=== PATIENT | female | born 1990 | race African-American/Black ===

== ENCOUNTER 2021-02-26 06:03 | Emergency (ER) | payer BC, SELFPAY ==
[2021-02-26 06:05] VITALS: BP 162/96; PULSE 79; RESP 17; TEMP 37; O2SAT 99; BMI 28.3
--- NOTE | 2021-02-26 06:20 | HMH.EDGENADL ---
ED Disposition <Nicholas Shirley - Last Filed: 02/26/21 07:05> Condition on Discharge: Good - Critical Care Critical Care Time: No <Maribel Ramsey - Last Filed: 02/26/21 10:05> Clinical Impression: Ovarian cyst Disposition: Home, Self-Care Additional Instructions: follow up with PCP. Return to ED if new symptoms. Take meds as directed. Take Tylenol as needed for pain. Prescriptions: Dicyclomine HCl [Bentyl 10mg capsule] 10 mg PO TID 7 Days #21 cap Transmission Status: Pending to [id number] - [facility] Rx Referrals: Droy Williamson MD [Primary Care Provider] - Attestation: On 02/26/21, the high probability of a clinically significant, sudden or life threatening deterioration of the following system(s) required my full and direct attention, intervention and personal management. The time I documented below is in addition to time spent performing reported procedures but includes the following listed in this critical care notation. Medical Decision Making - Gilson Inquiry Pt receiving controlled substance: No - Lab Data Result diagrams: 02/26/21 06:27 02/26/21 06:27 <Nicholas Shirley - Last Filed: 02/26/21 07:05> - Medical Records MR Comment: ct shows left ovarian cyst. thrombosis f the left ovarian vein. - Gilson Inquiry Pt receiving controlled substance: No Gilson was queried for this patient: No - Lab Data Result diagrams: 02/26/21 06:27 02/26/21 06:27 <Maribel Ramsey - Last Filed: 02/26/21 10:05> Vital Signs: 02/26/21 06:05 02/26/21 09:53 Temperature 98.6 F Temperature Source Oral Pulse Rate 91 H Pulse Rate [Right] 79 Respiratory Rate 17 Blood Pressure 148/85 H Blood Pressure [Right Arm] 162/96 H Blood Pressure Mean 103 Blood Pressure Mean [Right Arm] 118 Blood Pressure Source [Right Arm] Automatic Cuff Blood Pressure Position [Right Arm] Supine 02 Sat by Pulse Oximetry 99 100 Oxygen Delivery Method Room Air - Lab Data Lab Results 02/26/21 06:27: WBC 7.2, RBC 4.72, Hgb 13.6, Hct 40.3, MCV 85.4, MCH 28.8, MCHC 33.7, RDW 13.3, Plt Count 296, MPV 8.0, Neut % (Auto) 76.5, Lymph % (Auto) 18.3, [place] % (Auto) 3.1, Eos % (Auto) 1.2, Baso % (Auto) 0.9, Neut # (Auto) 5.5, Lymph # (Auto) 1.3, [place] # (Auto) 0.2, Eos # (Auto) 0.1, Baso # (Auto) 0.1 02/26/21 06:27: Sodium 137, Potassium 4.2, Chloride 103, Carbon Dioxide 27, Anion Gap 11.2, BUN 12, Creatinine 0.70, Estimated Creat Clear 159, Estimated GFR 100, Est GFR ( Amer) 121, Glucose 123 H, Calcium 9.2, Total Bilirubin 0.3, AST 24, ALT 14, Alkaline Phosphatase 138 H, Total Protein 8.2, Albumin 4.7, Globulin 3.5 H, Albumin/Globulin Ratio 1.3, Lipase 65 02/26/21 06:27: Serum HCG, Qual Negative 02/26/21 07:25: Urine Color Yellow, Urine Appearance Clear, Urine pH 7.0, Ur Specific [place] 1.010, Urine Protein Negative, Urine Glucose (UA) Negative, Urine Ketones Negative, Urine Blood Negative, Urine Nitrate Negative, Urine Bilirubin Negative, Urine Urobilinogen 0.2, Ur Leukocyte Esterase Negative, Urine RBC None, Urine WBC 3-5, Ur Squamous Epith Cells 3-5, Urine Bacteria None Orders (Tests/Meds): ED MEDICATIONS Discontinued Medications Generic Name Dose Route Start Last Admin Trade Name Alvin PRN Reason Stop Dose Admin Iopamidol 75 ml 02/26/21 07:34 02/26/21 07:35 Iopamidol-370 (76%);100ml Bottle IV 02/26/21 07:35 75 ml ONCE ONE Administration Sodium Chloride 10 ml 02/26/21 07:34 02/26/21 07:35 Sodium Chloride 0.9% 10ml Syr (Rad Only) IV 02/26/21 07:35 10 ml ONCE ONE Administration ORDERS Category Date Time Status ECG Request by /Kajal Stat Y 02/26/21 06:30 Stop Req Medical Decision Narrative: Upon arrival patient is hemodynamically stable afebrile overall nontoxic appearing. Differential diagnosis includes but not limited to , endometriosis, renal colic, diverticulitis, intra-abdominal infection, colitis. Given this will obtain broad laboratory work-up katiana
--- NOTE | 2021-02-26 06:30 | CT_ITS ---
PROCEDURE INFORMATION: Exam: CT Abdomen And Pelvis With Contrast Exam date and time: 02/26/2021 6:30 AM Age: 30 years old Clinical indication: Abdominal pain; Localized; Lower; Additional info: Llq pain TECHNIQUE: Imaging protocol: Computed tomography of the abdomen and pelvis with contrast. Radiation optimization: All CT scans at this facility use at least one of these dose optimization techniques: automated exposure control; mA and/or kV adjustment per patient size (includes targeted exams where dose is matched to clinical indication); or iterative reconstruction. Contrast material: ISOVUE; Contrast volume: 75 ml; Contrast route: IV; COMPARISON: No relevant prior studies available. FINDINGS: Liver: Normal. No mass. Gallbladder and bile ducts: Normal. No calcified stones. No ductal dilation. Pancreas: Normal. No ductal dilation. Spleen: Normal. No splenomegaly. Adrenal glands: Normal. No mass. Kidneys and ureters: Normal. No hydronephrosis. Stomach and bowel: Unremarkable. No obstruction. No mucosal thickening. Appendix: No evidence of appendicitis. Intraperitoneal space: Unremarkable. No free air. No significant fluid collection. Vasculature: There is thrombosis in the left ovarian vein. Lymph nodes: Unremarkable. No enlarged lymph nodes. Urinary bladder: Unremarkable as visualized. Reproductive: There is a complex 2.6 cm cyst in the left ovary. Bones/joints: Unremarkable. No acute fracture. Soft tissues: Unremarkable. IMPRESSION: 1. 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 2. Left ovarian cyst.
[2021-02-26 06:38] LABS: Basophils # 0.1 K/mm3 (0-0.2); Basophils % 0.9 % (0.1-2.0); Eosinophils # 0.1 K/mm3 (0.0-0.4); Eosinophils % 1.2 % (0.1-12.0); Hematocrit 40.3 % (37.0-47.0); Hemoglobin 13.6 g/dL (12.2-16.2); Lymphocytes # 1.3 K/mm3 (0.7-4.5); Lymphocytes % 18.3 % (10-50); Mean Corpuscular HGB Conc 33.7 g/dL (31.8-35.4); Mean Corpuscular Hemoglobin 28.8 pg (27.0-31.2); Mean Corpuscular Volume 85.4 fl (81-99); Monocytes # 0.2 K/mm3 (0.1-1.0); Monocytes % 3.1 % (1.7-9.3); Neutrophils # 5.5 K/mm3 (1.8-7.8); Neutrophils % 76.5 % (37.0-80.0); Platelet Count 296 K/mm3 (142-424); Red Blood Count 4.72 M/mm3 (4.20-5.40); Red Cell Distribution Width 13.3 % (11.5-17.5); White Blood Count 7.2 K/mm3 (4.8-10.8)
[2021-02-26 06:47] LABS: HCG Qualitative, Serum Negative (Negative)
[2021-02-26 06:54] LABS: Chloride 103 mmol/L (98-107); Sodium 137 mmol/L (136-145)
--- NOTE | 2021-02-26 06:54 | ECG_ITS ---
APPROVED REPORT Exam: Resting ECG HR:83 bpm ECG Measurements Heart Rate 83 AXES NC 158 P 60 QRSd 70 QRS 82 QT 370 T 50 QTc 434 Conclusion Normal sinus rhythm Normal ECG Electronically signed by : Gatito Simon, 02/26/2021 20:39:43
[2021-02-26 06:55] LABS: Potassium 4.2 mmoL/L (3.5-5.1)
[2021-02-26 06:57] LABS: Alanine Aminotransferase 14 U/L (12-78); Albumin Level 4.7 g/dl (3.5-5.0); Albumin/Globulin Ratio 1.3 (1.1-1.8); Alkaline Phosphatase 138 U/L (38-126); Anion Gap 11.2 mEq/L (5-15); Aspartate Amino Transferase 24 U/L (14-36); Bilirubin,Total 0.3 mg/dl (0.2-1.3); Blood Urea Nitrogen 12 mg/dl (7-17); Calcium 9.2 mg/dl (8.4-10.2); Carbon Dioxide 27 mmol/L (22.0-30.0); Creatinine Clearance Estimated 159 mL/min (50-200); Estimated Glomerular Filt Rate 100 ml/min (>60); GFR (African American) 121 ML/MIN (>60); Globulin 3.5 g/dL (1.3-3.2); Glucose 123 mg/dl (74-100); Lipase 65 U/L (23-300); Total Protein,Serum 8.2 g/dl (6.3-8.2)
[2021-02-26 07:31] LABS: Microscopic, Urine URINE MICROSCOPIC (MICROSCOPIC)
[2021-02-26 07:33] LABS: Appearance,Urine CLEAR (Clear); Bilirubin,Urine Negative (Negative); Blood, Urine Negative (Negative); Color,Urine YELLOW (Yellow); Glucose,Urine (UA) Negative (Negative); Ketones,Urine Negative (Negative); Leukocyte Esterase,Urine Negative (Negative); Nitrate,Urine Negative (Negative); Protein,Urine Negative (Negative); Urobilinogen,Urine 0.2 EU/dl (0.2)
--- NOTE | 2021-02-26 08:00 | PC.NURSE ---
pt resting updated on plan of care
--- NOTE | 2021-02-26 09:00 | PC.NURSE ---
pt resting updated on plan of care
[2021-02-26 09:53] VITALS: BP 148/85; PULSE 91; O2SAT 100
[2021-02-26 10:18] VITALS: BP 112/65; PULSE 71; RESP 16; TEMP 36.6; O2SAT 98
== END 2021-02-26 10:21 | disposition home or self-care (01) ==
PROVIDERS: Emergency Provider Emergency Medicine; PCP Internal Medicine
DX: N83.209 Unspecified ovarian cyst, unspecified side (principal)
CPT/HCPCS: 74177; 80053; 81001; 83690; 84703; 85025; 93005; 99283; Q9967

== ENCOUNTER → 2023-06-25 15:27 | Outpatient (POV) | payer BC, SELFPAY | PROVIDERS: PCP Internal Medicine; Visit Provider Dermatology | DX: Z00.00 Encounter for general adult medical examination without abnormal findings (principal) ==

== ENCOUNTER 2023-07-01 07:49 | Emergency (ER) | payer BC, SELFPAY ==
[2023-07-01 07:50] VITALS: BP 147/93; PULSE 87; RESP 18; TEMP 36.9; O2SAT 100; BMI 22.8
--- NOTE | 2023-07-01 08:15 | HMH.EDGENADL ---
Discharge Plan Disposition Patient Disposition: Home, Self-Care Condition: Good Prescriptions Prescriptions: New dicyclomine 10 mg capsule 10 mg PO QID PRN (Reason: abdominal pain) Qty: 20 0RF famotidine [Pepcid] 20 mg tablet 20 mg PO DAILY Qty: 30 0RF ondansetron 4 mg tablet,disintegrating 4 mg PO Q8H PRN (Reason: nausea and vomiting) 4 Days Qty: 12 0RF doxycycline hyclate 100 mg capsule 100 mg PO BID 7 Days Qty: 14 0RF No Action metoprolol tartrate 50 MG tablet 50 mg PO DAILY dicyclomine 10 MG capsule 10 mg PO TID 7 Days Qty: 21 0RF Referrals Follow up/Referrals: Evelia Peterson DO [Staff Physician] - See instructions Hannah Cortés DO [Staff Physician] - See instructions Patricia Cherry DO [Primary Care Provider] - See instructions Activity Restrictions/Add. Instructions Additional Instructions/Restrictions: You were evaluated in the emergency department today. 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 For these things, I recommend close follow-up with gynecology. I have provided you the contact information for Dr. 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 Keep close outpatient follow-up with your primary care provider to further work this up. You may benefit from referral to a sales enablement lead. Try to eat a bland diet and eat small amounts at a time. Return to the emergency department for new or worsening symptoms. Clinical Impressions Clinical Impression: Ovarian cyst, Chronic nausea, Pneumonia Instructions Patient Instructions: DI for Nausea -- Adult Discharge ED Provider: Magda Correa General Adult HPI General Chief complaint: Nausea/Vomiting/Diarrhea Stated complaint: vomitting, nausea Time Seen by Provider: 07/01/23 07:54 Mode of Arrival: Ambulatory Source of Information: Patient Limitations: No Limitations Description of Symptoms (Recalled from ER Triage Doc. by RN): c/o nausea since the end of April, vomiting the last 2 days only in the mornings. Last period Jun 01-, negative preg test at home. Denies any abdominal pain, 22 lb weight loss in the last month. History of Present Illness HPI narrative: This patient is a 32-year-old female who denies significant past medical history presented to the emergency department for evaluation with concern for nausea since the end of April and 2 days of emesis. Patient reports that she started having nausea with eating at the end of April, but this is progressed to the point where now she is vomiting in the mornings. Today, she decided to come in because she was unable to keep anything down, including water. The vomiting has only been going on for 2 days. She saw her primary care provider for this previously and was prescribed Zofran, which is not improving her symptoms. She states that she is scheduled to have a right upper quadrant ultrasound next week to evaluate her gallbladder as a possible cause. She is taking test at home which are negative, but she notes that her last period was June 01. She states she is lost 22 pounds in the last month. She denies any fevers, chills, changes in bowel movements, or other concerns. Related Data Home Medications Medication Instructions Recorded Confirmed metoprolol tartrate 50 mg tablet 50 mg PO DAILY htn 02/26/21 02/26/21 Previous Rx's Medication Instructions Recorded dicyclomine 10 mg capsule 10 mg PO TID 7 days #21 caps 02/26/21 dicyclomine 10 mg capsule 10 mg PO QID PRN abdominal pain 07/01/23 #20 caps doxycycline hyclate 100 mg capsule 100 mg PO BID 7 days #14 caps 07/01/23 famotidine 20 mg tablet (Pepcid) 20 mg PO DAILY #30 tabs 07/01/23 ondansetron 4 mg disintegrating 4 mg PO Q8H PRN nausea and 07/01/23 tablet vomiting 4 days #12 tabs Allergies Allergy
--- NOTE | 2023-07-01 08:17 | PC.NURSE ---
Pt ambulatory to bathroom and back to room 14. No needs voiced at this time. Call light within reach.
[2023-07-01 08:18] LABS: Microscopic, Urine URINE MICROSCOPIC (MICROSCOPIC)
[2023-07-01 08:18] LABS: Coronavirus 19, PCR Not Detected (NotDetected); Influenza A, PCR Not Detected (NotDetected); Influenza B, PCR Not Detected (NotDetected)
[2023-07-01 08:20] LABS: Chloride 105 mmol/L (98-107); Sodium 139 mmol/L (136-145)
[2023-07-01 08:21] LABS: Basophils % 0.5 % (0.1-2.0); Eosinophils # 0.1 K/mm3 (0.0-0.4); Eosinophils % 1.9 % (0.1-12.0); Hematocrit 39.6 % (37.0-47.0); Hemoglobin 13.5 g/dL (12.2-16.2); Lymphocytes # 1.3 K/mm3 (0.7-4.5); Lymphocytes % 38.2 % (10-50); Mean Corpuscular Hemoglobin 28.9 pg (27.0-31.2); Mean Platelet Volume 8.7 fl (7.4-10.4); Monocytes # 0.3 K/mm3 (0.1-1.0); Monocytes % 9.3 % (1.7-9.3); Neutrophils # 1.7 K/mm3 (1.8-7.8); Platelet Count 229 K/mm3 (142-424); Red Blood Count 4.66 M/mm3 (4.20-5.40); Red Cell Distribution Width 13.5 % (11.5-17.5); White Blood Count 3.3 K/mm3 (4.8-10.8)
[2023-07-01 08:22] LABS: Alanine Aminotransferase 17 U/L (12-78); Aspartate Amino Transferase 30 U/L (14-36); Blood Urea Nitrogen 13 mg/dl (7-17); Creatinine Clearance Estimated 98 mL/min (50-200); Estimated Glomerular Filt Rate 74 ml/min (>60); GFR (African American) 89 ML/MIN (>60)
--- NOTE | 2023-07-01 08:22 | PC.NURSE ---
Rios from lab called to advise there as not enough blood collected for a serum preg. Order changed to Urine preg per Dr. Correa order.
[2023-07-01 08:23] LABS: Albumin Level 4.7 g/dl (3.5-5.0); Albumin/Globulin Ratio 1.4 (1.1-1.8); Alkaline Phosphatase 58 U/L (38-126); Bilirubin,Total 0.9 mg/dl (0.2-1.3); Calcium 8.7 mg/dl (8.4-10.2); Carbon Dioxide 27 mmol/L (22.0-30.0); Globulin 3.3 g/dL (1.3-3.2); Glucose 83 mg/dl (74-100); Lipase 87 U/L (23-300); Magnesium 2.1 mg/dl (1.6-2.3)
[2023-07-01 08:32] LABS: Appearance,Urine CLEAR (Clear); Blood, Urine Negative (Negative); Color,Urine YELLOW (Yellow); Glucose,Urine (UA) Negative (Negative); Ketones,Urine 1+ (Negative); Leukocyte Esterase,Urine Negative (Negative); Nitrate,Urine Negative (Negative); Protein,Urine 1+ (Negative); Specific Gravity, Urine >= 1.030 (1.005-1.030)
--- NOTE | 2023-07-01 08:35 | CT_ITS ---
FINAL REPORT TECHNIQUE: Pre-and postcontrast images of the abdomen and pelvis were performed by computed tomography. Extensive 3-D reconstruction images were performed. A CTA was performed. This study was performed with techniques to keep radiation doses as low as reasonably achievable (ALARA). Individualized dose reduction techniques using automated exposure control or adjustment of mA and/or kV according to the patient''s size were employed. CLINICAL HISTORY: unintentional weight loss, inability to toleratePO COMPARISON: 02/26/2021 FINDINGS: ABDOMEN AND PELVIS: Alveolar opacity is seen in the right lung base worrisome for pneumonia. Precontrast images demonstrate no evidence of nephrolithiasis. No adrenal masses are identified. The liver, spleen and pancreas are unremarkable. The bowel, including the appendix is unremarkable, without obstruction. There is no free fluid or adenopathy there is a 2.8 cm left ovarian cyst. A small amount of free fluid is likely physiologic or reactive. Moderate stool is present throughout the colon. CTA: The abdominal aorta is proper caliber. The SMA, celiac axis, and MARINA are patent. There is no significant stenosis or calcification. The renal arteries are patent bilaterally. Most of the venous structures are an unopacified. The left renal vein is patent. The left ovarian vein appears enlarged. An 8 mm focus of contrast enhancement is seen in the left lower pelvis worrisome for left uterine artery aneurysm. IMPRESSION: Alveolar opacity at the right lung base worrisome for pneumonia. 2.8 cm left ovarian cyst. Enlarged left ovarian vein. Focus of contrast enhancement in the left lower pelvis worrisome for left uterine artery aneurysm. Reviewed, Interpreted and Dictated by Ga Curry III, MD Transcribed by Marcela Odell Authenticated and . [facility]
[2023-07-01 08:36] LABS: Urine Pregnancy, HCG Qual. Negative (Negative)
[2023-07-01 08:37] LABS: Bilirubin,Urine Negative (Negative)
--- NOTE | 2023-07-01 08:48 | PC.NURSE ---
pt to rad
[2023-07-01 08:50] LABS: Bacteria,Urine Trace /lpf; RBC,Urine Occasional #/hpf (0-3); WBC,Urine Occasional #/hpf (0-3)
--- NOTE | 2023-07-01 10:11 | PC.NURSE ---
Dr. Correa at BS to update pt on results and POC.
[2023-07-01 12:20] VITALS: BP 139/74; PULSE 84; RESP 20; TEMP 36.9; O2SAT 97
== END 2023-07-01 12:22 | disposition home or self-care (01) ==
PROVIDERS: Emergency Provider Emergency Medicine; PCP Family Medicine
DX: J18.9 Pneumonia, unspecified organism (principal); R11.2 Nausea with vomiting, unspecified; N83.202 Unspecified ovarian cyst, left side
CPT/HCPCS: 74174; 80053; 81001; 81025; 83690; 83735; 85025; 87636; 96361; 96374; 96375; 99285; J2405; Q9967

== ENCOUNTER → 2023-07-16 10:35 | Outpatient (CLI) | payer BC, SELFPAY ==
--- NOTE | 2023-07-16 10:35 | US_ITS ---
PROCEDURE: US TRANSVAGINAL CLINICAL INDICATION: ovarian cyst COMPARISON: CT CT ANGIO ABDOMEN PELVIS from 07/01/2023 FINDINGS: Transvaginal sonographic images of the pelvis were obtained. UTERUS: 7.3cm x 5.5cmx 6.4cm retroverted with a combined endometrial thickness of 14.4mm. The myometrium has heterogenous areas. LEFT OVARY: 3.9cmx1.3cmx1.6cm with a volume of 4.4ml. The left ovary has a polycystic appearance. There is significant hypervascularity and pelvic congestion in the left adnexa. The 2.8 centimeter left ovarian cyst described on CT scan is no longer present. RIGHT OVARY: 3.6cmx 3.1cmx2.5cm with a volume of 14.5ml. There is a follicle measuring 1.9 cm x 1.8 cm x 1.8 cm. It has some internal echoes, possibly corpus luteum. Both ovaries are seen and appear normal. Doppler flow to both ovaries are seen. There is a small amount of fluid in the cul-de-sac. IMPRESSION: 1. Retroverted bulky uterus with heterogenous areas within the myometrium. 2. The left ovary is normal in shape and size and has a polycystic appearance. 3. There is significant hypervascularity and pelvic congestion in the left adnexa. 4. Right ovary is seen and appears normal with a small follicle measuring 1.9 cm. 5. There is a small amount of fluid in the cul-de-sac. Dictated by: Taurus Villareal MD 07/17/2023 11:08 Taurus Villareal MD in [place] 07/17/2023 11:08
== END ==
LOC: RAD 10:35
PROVIDERS: PCP Family Medicine; Visit Provider Obstetrics & Gynecology
DX: N83.209 Unspecified ovarian cyst, unspecified side (principal)
CPT/HCPCS: 76830

== ENCOUNTER 2023-09-24 16:28 | Outpatient (POV) | payer BC, SELFPAY | END 2023-09-24 23:59 | disposition home or self-care (01) | LOC: SC 16:28 | PROVIDERS: PCP Family Medicine; Visit Provider Dermatology | DX: Z00.00 Encounter for general adult medical examination without abnormal findings (principal) ==

== ENCOUNTER 2024-04-29 12:58 | Outpatient (CLI) | payer BC, SELFPAY ==
--- NOTE | 2024-04-29 12:58 | US_ITS ---
PROCEDURE: US TRANSVAGINAL CLINICAL INDICATION: Pelvic Pain COMPARISON: CT CT ANGIO ABDOMEN PELVIS from 07/01/2023 US US TRANSVAGINAL from 07/16/2023 FINDINGS: Transvaginal sonographic images of the pelvis were obtained. UTERUS: 8.4cm x 6.3cmx 5.0cm retroverted with a combined endometrial thickness of 15.5 mm. LEFT OVARY: 3.5cmx2c.0mx1.7cm with a volume of 6.2ml. There is fluid adjacent to the left ovary. There are several small follicles within the left ovary. RIGHT OVARY: 3.3cmx 1.5cmx1.3cm with a volume of 3.2ml. There is fluid adjacent to the right ovary. There are several small peripheral follicles. Both ovaries are seen and appear normal. Doppler flow to both ovaries are seen. There is a moderate amount of fluid in the cul-de-sac. IMPRESSION: 1. Retroverted uterus normal in shape and size. The endometrium is thickened and measures 15.5 mm. 2. Both ovaries are seen and appear normal. They both have several small peripheral follicles. There is fluid surrounding the ovaries. 3. There is moderate fluid in the cul-de-sac. Dictated by: Taurus Villareal MD 04/29/2024 16:26 Taurus Villareal MD in [place] 04/29/2024 16:26
== END 2024-04-29 23:59 | disposition home or self-care (01) ==
PROVIDERS: PCP Obstetrics & Gynecology; Visit Provider Obstetrics & Gynecology
DX: R10.2 Pelvic and perineal pain (principal)
CPT/HCPCS: 76830